=== PATIENT | female | born 1990 | race Two or more races ===

== ENCOUNTER 2024-08-23 11:55 | Emergency (ER) | payer MEDICAID ==
[~2024-08-23] VITALS: Ht 149.9 cm; Wt 54.0 kg
[2024-08-23 14:20] VITALS: BP 140/98; PULSE 113; RESP 16; TEMP 98.8; O2SAT 97
[2024-08-23] MEDS ORDERED: TOB03OS OP (14:28)
== END 2024-08-23 14:31 | disposition home or self-care (01) ==
LOC: ER 11:55
DX: H10.33 Unspecified acute conjunctivitis, bilateral (principal); Z79.899 Other long term (current) drug therapy

== ENCOUNTER 2024-09-18 08:56 | Emergency (ER) | payer MEDICAID ==
[~2024-09-18] VITALS: Ht 149.9 cm; Wt 55.4 kg
[~2024-09-18 08:56] MED LIST: TOB03OS OP
--- NOTE | 2024-09-18 09:56 | ED.PDOC ---
Musculoskeletal HPI Comments 34 year old presents for musculoskeletal pain Reports she was seen at [facility] for the same symptoms 1 week ago Had XRAYS and was rx ABx Keflex with no improvement States the pain originated from the left foot 3 week ago. No trauma or injury. Reports she now has left and right sided knee pain Pain aggravated with ambulation and improves at rest. Taking: IBU with no improvement Able to bear weight on the leg Denies trauma to the knee or recent fall Denies skin color changes around the knee Denies masses around the knee Denies popping/locking/giving out of the knee Denies fever chills night sweats nausea vomiting Denies previous surgeries to the knee nor significant injury Chief Complaint: Lower Extremity Time Seen by MD: 09:23 Reviewed Notes: Nurses Notes, Medications, Allergies Allergies: Coded Allergies: NO KNOWN ALLERGIES (Unverified , 08/23/24) Home Meds Active Scripts Tobramycin Sulfate (Tobrex) [address], 2 DROP OP QID, #5 ML Prov:JACKELYN HERNANDEZ 08/23/24 Information Source: Patient Mode of Arrival: Ambulatory Past Medical History PAST MEDICAL HISTORY: Denies Surgical History: Denies all surgeries HOSPITAL SUPERINTENDENT History: No Pertinent HOSPITAL SUPERINTENDENT History Family History Family History: Reviewed,noncontributory to illness Social History Smoker: Non-Smoker Alcohol: Denies ETOH Use Drugs: Denies Drug Use Lives In: Home All Other Systems: Reviewed and Negative (Per HPI) Physical Exam General Appearance: No Apparent Distress, Normal HEENT: Normal ENT Inspection, Pharynx Normal, TMs Normal Neck: Full Range of Motion, Non-Tender, Normal, Normal Inspection Respiratory: Chest Non-Tender, Lungs Clear, No Accessory Muscle Use, No Respiratory Distress, Normal Breath Sounds Cardiovascular: No Edema, No JVD, No Murmur, No Gallop, Normal Peripheral Pulses, Regular Rate/Rhythm Breast Exam: Deferred Gastrointestinal: No Organomegaly, Non Tender, No Pulsatile Mass, Normal Bowel Sounds, Soft Genitalia: Deferred Pelvic: Deferred Rectal: Deferred Extremities: No calf tenderness, Normal capillary refill, Normal inspection, Normal range of motion, Non-tender, No pedal edema Musculoskeletal : Apperance: Normal Neurologic: Alert, executive pilot II-XII nml as Tested, No Motor Deficits, Normal Affect, Normal Mood, No Sensory Deficits Cerebellar Function: Normal Reflexes: Normal Skin: Dry, Normal Color, Warm Lymphatic: No Adenopathy Was a procedure done? Was a procedure done?: No Images 1 - Localized TTP. With a gross abnormality. Full dorsiflexion plantar flexion. Dorsalis pedis pulses 2+ 2 - No gross abnormality. Localized tenderness to palpation 3 - No gross abnormality. Localized tenderness to palpation. Full passive and active range of motion Differential Diagnosis EXT Differential Diagnosis: Sprain, Other X-Ray, Labs, Meds, VS Vital Signs Date Time Temp Pulse Resp B/P (MAP) Pulse Ox O2 Delivery O2 Flow Rate FiO2 09/18/24 10:10 112 16 99 Room Air 09/18/24 10:10 97.7 112 16 127/99 (108) 99 97.7 09/18/24 09:10 97.7 112 16 127/99 (108) 99 Lab Test 09/18/24 10:35 Range/Units White Blood Count 13.4 H 4.4-10.8 10^3/uL Red Blood Count 4.59 4.0-5.20 10^6/uL Hemoglobin 13.3 12.2-16.2 g/dL Hematocrit 39.6 36.0-46.0 % Mean Corpuscular Volume 86.2 80.0-100.0 fL Mean Corpuscular Hemoglobin 28.9 28.0-32.0 pg Mean Corpuscular Hemoglobin Concent 33.5 32.0-36.0 g/dL Red Cell Distribution Width 13.3 11.8-14.3 % Platelet Count 403 140-450 10^3/uL Mean Platelet Volume 7.8 6.9-10.8 fL Neutrophils (%) (Auto) 73.5 37.0-80.0 % Lymphocytes (%) (Auto) 16.4 10.0-50.0 % Monocytes (%) (Auto) 9.4 0.0-12.0 % Eosinophils (%) (Auto) 0.4 0.0-7.0 % Basophils (%) (Auto) 0.3 0.0-2.0 % Neutrophils # (Auto) 9.9 H 1.6-8.6 10 ^3/uL Lymphocytes # (Auto) 2.2 0.4-5.4 10 ^3/uL Monocytes # (Auto) 1.3 0-1.3 10 ^3/uL Eosinophils # (Auto) 0.1 0-0.8 10 ^3/uL Basophils # (Auto) 0 0-0.2 10 ^3/uL Nucleated Red Blood Cells 0.0 % Sodium Level 140 136-145 mmol/L Potassium Level 3.5 3.5-5.1 mmol/L Chloride Level 104 98-107 mmol/L Carbon Dioxide Level 28 20-31 mmol/L Anion Gap 8 5-15 Blood Urea Nitrogen 8 L 9-23 mg/dL Creatinine 0.53 L 0.550-1.02 mg/dL Glomerular Filtration Rate Calc 123 >90 mL/min BUN/Creatinine Ratio 15.1 10.0-20.0 Serum Glucose 87 74-106 mg/dL Calcium Level 9.7 8.7-10.4 mg/dL X-Ray, Labs, Meds, VS Comment History and examination consistent of muscular injury Labs and imaging ordered to rule out serious pathology. Low suspicion for osteomyelitis, sepsis, septic joint at this time. Patient stable and nontoxic Take IBU 600 w/ food as needed for pain Recommended heat therapy Reviewed RICE management Avoid heavy lifting or strenuous activity Recommended range of motion exercises and limit heavy activity for 1 week On reevaluation, patient had symptomatic improvement. Patient is stable for discharge at this time. External notes reviewed. Test results and diagnostic imaging interpreted. All diagnostic findings, discharge care, education and instructions provided Follow-up with PCP in 2 to 3 days Patient verbalized understanding and agreed to treatment plan Vital signs stable, afebrile, no acute distress noted Patient ambulatory with strong steady gait Advised to return precautions for any new or worsening symptoms, return to ER immediately for re-evaluation Patient is aware that the purpose of this visit was for an acute medical emergency requiring emergent stabilization. Chronic conditions, including malignancies have not been ruled out. Patient is instructed to follow up with PCP as directed and discharge instructions for continued care and workup. If unable to arrange follow-up, patient is to return to the emergency department for reassessment. Patient (parent or legal guardian if applicable) was given verbal and written discharge instructions and acknowledges understanding. Time of 1ST Reevaluation: 11:38 Reevaluation 1ST: Improved Patient Education/Counseling: Diagnosis, Treatment Family Education/Counseling: Diagnosis, Treatment Departure 1 Departure Time of Disposition: 11:38 Impression: Primary Impression: Foot pain Qualified Codes: M79.672 - Pain in left foot Additional Impression: Internal derangement of knee Qualified Codes: M23.90 - Unspecified internal derangement of unspecified knee Disposition: HOME / SELF CARE / HOMELESS Condition: Stable e-Prescriptions Naproxen (Naproxen) 500 Mg Tab 500 MG PO BIDPC PRN for 14 Days, #28 TAB 0 Refills Prov: SADE GUZMÁN NP 09/18/24 Discharged With: Self Critical Care Note Critical Care Time?: No Stability Stability form required: No Heart Score Heart Score: Heart Score Response (Comments) Value History N/A 0 EKG N/A 0 Age N/A 0 Risk Factors N/A 0 Troponin N/A 0 Total 0 SADE GUZMÁN NP Sep 18, 2024 09:56
[2024-09-18 10:10] VITALS: BP 127/99; PULSE 112; RESP 16; TEMP 97.7; O2SAT 99
[2024-09-18 10:53] LABS: Basophils # (auto) 0 10 ^3/uL (0-0.2); Basophils % (auto) 0.3 % (0.0-2.0); Eosinophils # (auto) 0.1 10 ^3/uL (0-0.8); Eosinophils % (auto) 0.4 % (0.0-7.0); Hematocrit 39.6 % (36.0-46.0); Hemoglobin 13.3 g/dL (12.2-16.2); Lymphocytes # (auto) 2.2 10 ^3/uL (0.4-5.4); Lymphocytes % (auto) 16.4 % (10.0-50.0); Mean Corpuscular Hemoglobin 28.9 pg (28.0-32.0); Mean Corpuscular Hgb Conc. 33.5 g/dL (32.0-36.0); Mean Corpuscular Volume 86.2 fL (80.0-100.0); Monocytes # (auto) 1.3 10 ^3/uL (0-1.3); Monocytes % (auto) 9.4 % (0.0-12.0); Neutrophils # (auto) 9.9 10 ^3/uL (1.6-8.6); Neutrophils % (auto) 73.5 % (37.0-80.0); Platelet Count (auto) 403 10^3/uL (140-450); Red Blood Cells 4.59 10^6/uL (4.0-5.20); Red Cell Distribution Width 13.3 % (11.8-14.3); White Blood Cell 13.4 10^3/uL (4.4-10.8)
--- NOTE | 2024-09-18 11:01 | DVH ---
CLINICAL INDICATION: pain TECHNIQUE: XY L FOOT 3 VIEW XRAY Comparison: None FINDINGS/IMPRESSION: There is no evidence of acute fracture or dislocation. The visualized joint space is well maintained. The alignment is anatomical. There is no radiopaque foreign body.
--- NOTE | 2024-09-18 11:04 | DVH ---
CLINICAL INDICATION: pain TECHNIQUE: XY R KNEE 3V XRAY Comparison: None FINDINGS/IMPRESSION: There is no evidence of acute fracture or dislocation. The visualized joint space is well maintained. The alignment is anatomical. There is no radiopaque foreign body.
[2024-09-18 11:05] LABS: Chloride 104 mmol/L (98-107); Potassium 3.5 mmol/L (3.5-5.1); Sodium 140 mmol/L (136-145)
[2024-09-18 11:06] LABS: Anion Gap 8 (5-15); Calcium 9.7 mg/dL (8.7-10.4); Carbon Dioxide 28 mmol/L (20-31)
[2024-09-18 11:11] LABS: BUN/Creatinine Ratio 15.1 (10.0-20.0); Blood Urea Nitrogen 8 mg/dL (9-23); Glucose 87 mg/dL (74-106)
[2024-09-18] MEDS ORDERED: NAPR-746 PO (11:39)
== END 2024-09-18 11:47 | disposition home or self-care (01) ==
LOC: ER 08:56
DX: M79.672 Pain in left foot (principal); M23.92 Unspecified internal derangement of left knee; M23.91 Unspecified internal derangement of right knee
CPT/HCPCS: 36415; 73562; 73630; 80048; 85025